=== PATIENT | male | born 2005 | race Two or more races ===

== ENCOUNTER 2024-06-07 10:27 | Emergency (ER) | payer OTHER ==
[~2024-06-07] VITALS: Ht 200.7 cm; Wt 89.8 kg
[2024-06-07] MEDS ORDERED: RINGERS SOLUTION,LACTATED 1,000 ML IV ONE (11:15)
[2024-06-07] MEDS ORDERED: DEXTROSE 5 %-0.45 % SOD CHLORD 500 ML IV SCH (11:15)
[2024-06-07] MEDS ORDERED: FAMOtidine 10 MG/ML (4ML VIAL) IV ONE (11:15)
[2024-06-07] MEDS ORDERED: FAMOTIDINE/PF 20 MG/2 ML VIAL ONE (11:38)
[2024-06-07 13:03] LABS: HEMOGLOBIN 15.7 g/dL (13-16.00); MEAN CELL VOLUME 84.9 fL (80.0-100.00); MEAN CORPUSCULAR HEMOGLOBIN 28.9 pg (27.00-32.0); MEAN CORPUSCULAR HGB CONC 34.1 g/dl (32.0-36.0); PLATELET COUNT 236 K/uL (150-450); RED BLOOD COUNT 5.43 M/uL (4.00-6.00)
[2024-06-07 13:45] LABS: ALBUMIN 4.5 gm/dL (3.4-5.0); BILIRUBIN TOTAL 0.89 mg/dL (0.3-1.2); CALCIUM 9.6 mg/dL (8.5-10.1); CREATININE SERUM 1.17 mg/dL (0.70-1.30); GFR 79.48; GLOBULINA 4.1 G/DL (2.4-3.5); POTASSIUM 3.99 mEq/L (3.5-5.1); TOTAL PROTEIN 8.6 gm/dL (6.4-8.2)
[2024-06-07 14:43] LABS: PH,URINE 6.5 (5.0-8.0); URINE APPEARANCE Clear; URINE BILIRRUBIN Negative (NEGATIVE); URINE BLOOD Negative; URINE COLOR Yellow; URINE GLUCOSE Negative (NEGATIVE); URINE KETONE Trace (NEGATIVE); URINE LEUKOCYTE Negative; URINE NITRATE Negative; URINE PROTEIN 30 (NEGATIVE)
[2024-06-07 14:44] LABS: URINE BACTERIA 6.1 uL (0.0-1933); URINE EPITHELIAL CELLS 4.9 uL (0.0-38.8); URINE RBC 9.2 uL (0.0-20.8); URINE WBC 3.9 uL (0.0-23.2)
[2024-06-07 14:49] LABS: URINE CAST 0.44 uL (0.0-1.40)
== END 2024-06-07 15:15 | disposition home or self-care (01) ==
LOC: EMR PED 10:29 → ER 10:29 → EMR PED 12:11
PROVIDERS: Emergency Medicine Pediatric Emergency Medicine
DX: A90 Dengue fever [classical dengue] (principal); J45.909 Unspecified asthma, uncomplicated; Z91.018 Allergy to other foods; Z20.822 Contact with and (suspected) exposure to COVID-19